=== PATIENT | female | born 1955 | race Caucasian/White ===

== ENCOUNTER 2017-02-15 00:57 | Inpatient (IN) | payer OTHER ==
[2017-02-15] VITALS (8 sets, daily range): BP systolic 89–130; BP diastolic 56–80; PULSE 55–139; RESP 15–27; O2SAT 93–99
[~2017-02-15] VITALS: Ht 177.8 cm; Wt 73.9 kg
--- NOTE | 2017-02-15 01:17 | ED.REPORT ---
HPI-General Illness Date of Service Feb 15, 2017 ED Provider: Jerry Solo MD Pt is a 61 y.o. female who presents to the ED via EMS c/o severe lower back pain onset today. Pt was seen at [facility] earlier today after being kicked off of a horse and she was dx with a nondisplaced L2 transverse process fracture. Other than the fracture the pt's CT abdomen/pelvis was normal. She was discharged home with a prescription for Dilaudid but she was unable to fill the prescription due to the late hour. When she had arrived home she went straight to bed, she had to use the restroom and when she stood up she experienced intense pain rated at a 10 and an associated syncopal episode. The pt's was standing next to her to help her walk and was able to lower her to the ground. Pt reports associated LOC (no given time), weakness, nausea, and rapid heart palpitations. She denies head injury, chest pain, SOB, and bladder/bowel dysfunction.. Nursing Notes Stated Complaint: SYNCOPE,LOC Chief Complaint: Back Pain or Injury Nursing Notes Reviewed: Yes Allergies: Coded Allergies: No Known Allergies (Verified Allergy, Unknown, 02/15/17) General Time Seen by MD: 01:15 Chief Complaint Back pain Hx Obtained From: Patient Arrived By: Walk-in Sudden in Onset?: Yes Symptom Duration: Since onset Caused by: Accidental, Fall from height... Location: : Back Quality: Painful Severity: Current: Pain level 2 out of 10 Severity: Maximum: Pain level 10 out of 10 Recent Healthcare: Recent doctor visit Past Medical History Past Medical History Denies Past Surgical History None reported Social History Alcohol Use: "Social" Other Social History: Ambulatory Status Independent Review of Systems Full Review of Systems Constitutional: Reports: Weakness - generalized Respiratory: Denies: Shortness of breath Cardiovascular: Reports: Palpitations, Denies: Chest pain GI: Reports: Nausea Female: Denies: Incontinence Neurologic: Reports: Change LOC, Syncope, Denies: Bladder dysfunction, Bowel dysfunction Complete sys rev & neg: except as marked. Physical Exam Vital Signs Vital Signs Date Time Temp Pulse Resp B/P Pulse Ox O2 Delivery O2 Flow Rate FiO2 02/15/17 01:04 36.8 139 27 130/76 98 Room Air Initial VS: Reviewed ENT: Mucous membranes moist Extremities: Vascular intact, Neuro intact Skin: Warm, Dry, No cyanosis Psychiatric: Mood/affect normal, Behavior normal, Normal thought content General/Constitutional: Awake, Alert, Well appearing, Well developed, Well hydrated, Well nourished, Not toxic appearing Appearance / Presentation: Positive: In pain, Uncomfortable Head / Eyes: Atraumatic, Normocephalic, PERRL Cardiovascular: Regular rhythm, Heart sounds NL, Cap refill not delayed, Peripheral circulation NL Heart Rate / Rhythm: Positive: Tachycardia Abdomen: Atraumatic, Soft, No guarding, No rebound, No distention Tenderness/Guarding/Rebound: Positive: Tender RLQ..., Tender RUQ... Trauma - General: Negative: Ecchymosis, Hematoma Flank / Spine / Paraspinal: Positive: Lumbar spine tender... (Low) Neurologic: Oriented X3, Speech NL Interpretation & Diagnostics Lab Results Interpretation Result Diagram: 02/15/17 0118 02/15/17 0118 Test 02/15/17 01:18 White Blood Count 9.5th/mm3 (3.8-10.1) Red Blood Count 4.38mil/mm3 (3.90-5.20) Hemoglobin 12.9g/dL (12.0-15.6) Hematocrit 39.7% (35.0-46.0) Mean Corpuscular Volume 90.6fL (81-100) Mean Corpuscular Hemoglobin 29.5pg (27.0-35.0) Mean Corpuscular Hemoglobin Concent 32.5% (32.0-37.0) Red Cell Distribution Width 13.9% (12.3-15.4) Platelet Count 249bil/L (150-400) Neutrophils (%) (Auto) 69.6% (40-74) Lymphocytes (%) (Auto) 18.3% (14-46) Monocytes (%) (Auto) 10.8% (4-12) Eosinophils (%) (Auto) 0.6% (0-5) Basophils (%) (Auto) 0.5% (0-3) Hold Purple Top Tube Received (Received) Prothrombin Time 10.3sec (8.1-12.5) Prothromb Time International Ratio 0.96ratio Activated Partial Thromboplast Time 23.7sec (22.8-33.0) Hold Blue Top Tube Received (Received) Sodium Level 138mEq/L (134-144) Potassium Level 3.7mEq/L (3.5-5.2) Chloride Level 96mEq/L (97-108) Carbon Dioxide Level 24mmol/L (18-29) Blood Urea Nitrogen 13mg/dL (8-27) Creatinine 0.75mg/dL (0.57-1.00) Estimat Glomerular Filtration Rate 113mL/min (>59) Glucose Level 120mg/dL (60-99) Calcium Level 9.0mg/dL (8.5-10.1) Magnesium Level 2.0mg/dL (1.6-2.6) Total Bilirubin 0.4mg/dL (0.0-1.2) Aspartate Amino Transf (AST/SGOT) 21U/L (0-50) Alanine Aminotransferase (ALT/SGPT) 26U/L (0-32) Alkaline Phosphatase 70U/L (25-165) Total Protein 7.1g/dL (6.4-8.4) Albumin 4.4g/dL (3.4-5.0) Lipase 17U/L (13-60) Hold [place] Top Tube Received (Received) Re-Eval/Medical Decision Med Decision/Clinical Course In summary, 61-year-old female presenting to the ED for evaluation of a syncopal episode in the setting of trauma yesterday evening. When seen at [facility], her readings demonstrated a negative CT scan of the patient's abdomen and pelvis, however demonstrated a left L2 TP fracture. Her vital signs there appeared to be grossly within normal limits, however upon arrival here, the patient is tachycardic normotensive. No bowel or bladder incontinence, no urinary retention. Concern for delayed traumatic injury plan to obtain repeat trauma scans. Patient signed out to Dr. White at 0300 with trauma scans and likely admission pending. Source of Hx: Old records Time of Eval: 02:19 Re-Evaluation/Progress Note: Pt rechecked. Pt is persitently tachycardic. Pt is still in pain and is requesting to be admitted to the hospital. Counseled Regarding: Diagnosis, Lab results, Need for follow-up, When/why to return to ED Discharge & Departure Shift Change Sign-Out Patient Care Transferred: Yes (Dr. White) Discussed Complaint(s): Yes Imaging Studies: Ordered, not yet done Primary Impression: Lumbar transverse process fracture Encounter type: initial encounter Fracture type: closed Qualified Code: S32.008A - Other fracture of unspecified lumbar vertebra, initial encounter for closed fracture Disposition: ADMITTED TO HOSPITAL Discharge Condition All VS Reviewed: Yes Condition: Improved Referrals: Syeda Landon MD (PCP) Care Transferred to: Dr. White Care Transferred at: 03:00 Scribe Attestation Portions of this note were transcribed by Epi Hallman. I, Dr. Solo personally performed the history, physical exam and medical decision-making; I reviewed and confirmed the accuracy of the information in the transcribed note. Signed by: Dylan Lawson, 02/15/2017 and 0252. copies to: Syeda Landon MD, William B MD Feb 15, 2017 01:17 EPI HALLMAN Feb 15, 2017 01:28
[2017-02-15] MEDS ORDERED: 0.9% Sodium Chloride 1,000 ML IV ONE ×2 (01:33→02:31)
[2017-02-15] MEDS ORDERED: HYDROmorphone 0.5 mg/0.5 mL iSecure Syringe IVPUSH PRN (01:35)
[2017-02-15] MEDS ORDERED: Ondansetron 2 mg/mL 2 mL Inj IVPUSH ONE (01:35)
[2017-02-15 02:42] LABS: BASOPHILS % (AUTO) 0.5 % (0-3); EOSINOPHILS % (AUTO) 0.6 % (0-5); MONOCYTES % (AUTO) 10.8 % (4-12); Mean Corpuscular Hemoglobin 29.5 pg (27.0-35.0); Mean Corpuscular Volume 90.6 fL (81-100); NEUTROPHILS % (AUTO) 69.6 % (40-74); Platelet Count 249 bil/L (150-400)
[2017-02-15 02:50] LABS: INR 0.96 ratio
[2017-02-15] MEDS ORDERED: Ondansetron 2 mg/mL 2 mL Inj IVPUSH PRN ×2 (03:55→06:20)
[2017-02-15] MEDS ORDERED: Diltiazem 5 mg/mL 5 mL Inj IVPUSH ONE (04:50)
[2017-02-15] MEDS ORDERED: Lidocaine 2% 6mL Topical Jelly TOPICAL ONE (04:50)
[2017-02-15] MEDS ORDERED: Hydrocortisone 50 mg/mL 2 mL Inj IVPUSH ONE (06:15)
[2017-02-15] MEDS ORDERED: Ketorolac 15 mg/mL Inj IVPUSH ONE (06:15)
[2017-02-15] MEDS ORDERED: Dextrose 5% 0.45% NaCl 1,000 ML IV SCH (06:20)
[2017-02-15] MEDS ORDERED: Alum-Mag Hydrox-Simeth 30 mL Suspension PO PRN (06:20)
[2017-02-15] MEDS ORDERED: 0.9% Sodium Chloride 1,000 ML IV SCH (07:22)
[2017-02-15] MEDS ORDERED: Senna-Docusate 8.6-50 mg Tablet PO PRN (07:25)
[2017-02-15] MEDS ORDERED: Polyethylene Glycol (PEG) 17 Gm Powder PO PRN (07:25)
--- NOTE | 2017-02-15 07:29 | PCM.HPMED ---
Subjective Date of Service Feb 15, 2017 Primary Provider: Admitting Physician: Yoel Soliman MD Primary Care Physician: Syeda Landon MD Attending Physician: Yoel Soliman MD Chief Complaint: Low back pain, A. fib found History of Present Illness: 02/14 patient presented to the ED in [facility] after being thrown from a horse and being diagnosed with an acute L2 transverse process fracture. She declined hospitalization at that point in time after receiving a couple doses of Dilaudid and went home with Dilaudid by mouth. Overnight she woke up because she was in severe pain and felt that her heart was pounding and I think she tried to go to the bathroom and actually had a syncopal episode. She denies having chest pain shortness of breath or diaphoresis with it she just states she "did not feel right". She had severe pain because the Dilaudid that was prescribed she could not fill because pharmacies were closed in her area. Prior to the fall she had been feeling fine. There was no syncope or near syncope. The horse she was riding in a show sputum threw her. Review of Systems: Gen.: No fevers chills weight loss weight gain + overnight malaise as described above Eyes: no visual disturbances or blurring vision HEENT: No nose/throat drainage, no pain in ears or throat, no hearing loss Lymph: No lymph nodes noted Cardiac: No chest pain, orthopnea, PND, pedal edema or dyspnea on exertion, ++ palpitations Pulmonary: no cough, wheezing or bringing up of sputum GI: No anorexia nausea vomiting blood or black in the stool : no dysuria hematuria urinary frequency or decrease in urine output Musculoskeletal: Joint swelling no joint pain no new muscle aches ++ back pain Neuro: No syncope, seizures no,no new focal weakness, numbness or tingling ++ syncope Psychiatric: New new anxiety insomnia or depression Endocrine: No new heat or cold intolerances polyuria or polydipsia Hematology: No lymphadenopathy or easy bleeding or bruising noted skin: No new rashes, stasis dermatitis Allergies Coded Allergies: No Known Allergies (Verified Allergy, Unknown, 02/15/17) Home Medications Hydrocortisone PMH Adrenal insufficiency has had workup at [facility] including brain imaging December 2016 Surgery- patient denies Social- patient denies smoking drinking and recreational drugs she is and her is at the bedside Family history- mother with diabetes and breast cancer in her 70s. Other med she denies any family history of heart disease, other cancers, or other disorders Social History Hx Alcohol Use: Yes (OCCAS) Hx Substance Use: No Exam Vital Signs Vital Sign - Last Date Time Temp Pulse Resp B/P Pulse Ox O2 Delivery O2 Flow Rate FiO2 02/15/17 06:46 65 15 95/58 95 Room Air 02/15/17 01:04 36.8 Intake and Output 02/14/17 02/14/17 02/15/17 Cumulative From/Thru 15:00 23:00 07:00 02/15/17 01:04 - 02/15/17 04:40 Intake Total 2000 ml 2000 ml Balance 2000 ml 2000 ml Intake IV Total 2000 ml 2000 ml Exam Gen.- A+ O 3 no apparent distress. Tall sturdy female lying in bed Eyes- open conjunctiva clear, pupils equal nonicteric Mouth- oral mucosa moist, no exudate ENT- ears normal, nose normal Neck- supple/trach midline CVS- RRR no murmur or gallop Lungs CTA GI- NABS/NT soft Musc- moving 4 no obvious deformity Neuro- cranial nerves II through XII intact to gross examination, nonfocal Skin- warm and dry, no rashes/lesions/wounds noted Psych- pleasant and appropriate, Lab and Diagnostics Result Diagram: 02/15/1711702/15/17117 12-lead ECG A. fib with a rate of 119, QTC over read as 475 ms personally/concurrently reviewed by Jeannie 02/15 Assessment & Plan 61-year-old female who was thrown from a horse yesterday comes in because of back pain and near syncopal episode. Her pain was not controlled because she could not fill the narcotic prescription and then she was incidentally found to be in A. fib with rapid ventricular response. #A. fib with RVR-rate control with metoprolol, will determine best anticoagulation after speaking with patient -r/o WI by enzymes -Echo pending #Adrenal insufficiency-dosing stress dose hydrocortisone 30 mg by mouth twice a day #Back pain/transverse process fracture-Tylenol 975 3 times a day plus Dilaudid which patient was prescribed from [facility]. -Early mobilization and see if patient needs a muscle relaxant #Prophylaxis-DVT with SCDs/enoxaparin, GI not indicated #Disposition-full code from babylon Zach Dennis MD Feb 15, 2017 07:29
[2017-02-15 08:44] LABS: Creatine Kinase 188 U/L (21-215)
[2017-02-15] MEDS: Sodium Chloride LOK Flush 10 mL Syringe IVFLUSH SCH ×2 (08:51→16:30)
--- NOTE | 2017-02-15 09:19 | DRSVH ---
PROCEDURE: CT CHEST, ABDOMEN AND PELVIS WITH CONTRAST ([id number]) INDICATIONS: trauma TECHNIQUE: After the administration of intravenous contrast, 5 mm thick sections acquired from the lung apices t o the symphysis. 5 mm thick coronal and sagittal reformats were acquired. Additional 7 mm thick cor onal maximum intensity projection (MIP) reformats acquired through the lungs. Optional 10-minute del ayed imaging may be performed from the kidneys to the bladder. For radiation dose reduction, the fol lowing was used: automated exposure control, adjustment of mA and/or kV according to patient size. COMPARISON: None. FINDINGS: Image quality: Excellent. CHEST: Lungs: No pulmonary contusions or lacerations. No acute airspace opacities. No pneumothorax or hem othorax. Central and peripheral airways appear patent and normal in caliber. Mediastinum: No mediastinal hematomas. Heart size is normal. No pericardial effusion. Thoracic ao rta and pulmonary arteries demonstrate normal size and enhancement. No mediastinal or hilar adenopat hy. Esophagus is normal in caliber. No hiatal hernia. Chest wall: No rib fractures. No subcutaneous emphysema. No axillary or supraclavicular adenopathy . Thyroid gland is within normal limits where visualized. ABDOMEN: Solid organs: Liver and spleen are normal in size and enhancement, without lacerations. Gallbladder is within normal limits. Biliary system is non-dilated. Pancreas enhances normally, without transe ction. No adrenal hematomas. Both kidneys enhance normally, without hydronephrosis or lacerations. A 0.9 cm in diameter fat density lesion is noted in the left kidney compatible with renal angiomyolip sera. There is a 4 mm diameter nonobstructing stone in the superior pole of the left kidney. There is a 2 mm nonobstructing stone in the inferior pole of the right kidney. Peritoneum and bowel: No free fluid or air. Unenhanced bowel loops demonstrate normal wall thicknes s and caliber. Scattered diverticuli noted in the sigmoid colon without evidence of diverticulitis. Nodes and vessels: No retroperitoneal or mesenteric adenopathy. Aorta and inferior vena cava are no rmal in size and enhancement. Miscellaneous: No ventral hernias. PELVIS: Genitourinary: Bladder wall thickness is normal. Punctate calcification noted in the uterus possibly related to uterine fibroid. Miscellaneous: No inguinal hernias or adenopathy. Bones: Pelvic ring and hip joints appear intact. No vertebral compression fractures. Chronic left L 2 transverse process fracture is noted. Spine degenerative disc disease and facet arthropathy are not ed. IMPRESSION: 1. No acute traumatic injury. 2. 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 3. Small nonobstructing bilateral renal stones. 4. Colonic diverticulosis without evidence of diverticulitis. 5. Chronic left L2 transverse process fracture. Dictated by: Fide Leiva MD, PhD on 02/15/2017 at 9:12 Approved by: Fide Leiva MD, PhD on 02/15/2017 at 9:18
--- NOTE | 2017-02-15 09:22 | DRSVH ---
PROCEDURE: CT BRAIN WITHOUT CONTRAST ([id number]) INDICATIONS: trauma TECHNIQUE: Noncontrast 4.5 mm thick angled axial sections acquired from the foramen magnum to the vertex, with c oronal reformats. COMPARISON: None. FINDINGS: Image quality: Excellent. CSF spaces: Basal cisterns are patent. No extra-axial fluid collections. Ventricles are normal in size and shape. Brain: No midline shift. No intracranial masses or hemorrhage. Nogueira-white matter interface is norm al. Skull and face: Calvarium and visualized facial bones are intact, without suspicious lesions. Sinuses: Mucosal thickening and air-fluid levels noted in the maxillary sinuses bilaterally. The mast oids are clear. IMPRESSION: 1. No acute intracranial disease process. 2. Bilateral acute superimposed upon chronic maxillary sinusitis. Dictated by: Fide Leiva MD, PhD on 02/15/2017 at 9:18 Approved by: Fide Leiva MD, PhD on 02/15/2017 at 9:21
--- NOTE | 2017-02-15 09:27 | DRSVH ---
PROCEDURE: CT CERVICAL SPINE WITHOUT CONTRAST ([id number]) INDICATIONS: trauma TECHNIQUE: Noncontrast 3 mm thick sections acquired from the skull base to the T4 level. Sagittal and coronal r eformats were then constructed. For radiation dose reduction, the following was used: automated exp osure control, adjustment of mA and/or kV according to patient size. COMPARISON: None. FINDINGS: Image quality: Excellent. Bones: No fractures or dislocations. Visualized superior ribs are intact. Spine degenerative disc d isease and facet arthropathy. Soft tissues: Prevertebral soft tissues are normal in thickness. No paravertebral hematomas. No ap ical pneumothoraces. 6 mm left thyroid hypoattenuating nodule. IMPRESSION: No fracture. No acute osseous lesion. If symptoms and/or clinical suspicion for patholog y persists, further assessment with MRI may be helpful for further assessment. Dictated by: Fide Leiva MD, PhD on 02/15/2017 at 9:21 Approved by: Fide Leiva MD, PhD on 02/15/2017 at 9:25
[2017-02-15] MEDS ORDERED: HYDR5TAB PO ×2 (11:07)
--- NOTE | 2017-02-15 12:27 | DRSVH ---
[facility] [address] [place] [address] Echocardiogram Report Name: MICHAEL VELAZCO LStudy Date: 01/2017 Height: 70 in Hospital Exam Location: [facility] Weight: 165 lb Gender: Female BSA: 1.9 m2 : 1955 Age: 61 yrs BP: 89/56 mmHg Reason For Study: Chest pain Performed By: Corbin Reina Referring Physician: Syeda Landon Interpretation Summary The left ventricle is normal in size. The ejection fraction is estimated to be 60-65%. The right ventricle is normal in size and function. No significant valvular pathology seen. There is mild luminal irregularity and echogenicity in the abdominal aorta, suggestive of aortic atherosclerotic disease. Procedure: A two-dimensional transthoracic echocardiogram with color flow and Doppler was performed. There is no prior echocardiogram noted for this patient. The study quality was technically adequate. The patient was in normal sinus rhythm during the exam. Left Ventricle: The left ventricle is normal in size. There is normal left ventricular wall thickness. There is no thrombus. The ejection fraction is estimated to be 60-65%. There are no focal wall motion abnormalities. Spectral Doppler of the mitral valve shows a normal E/A wave ratio. The E/E' ratio is borderline increased, suggesting possible increased filling pressures. Right Ventricle: The right ventricle is normal in size and function. Atria: Both atria are normal in size. The interatrial septum is intact with no evidence for an atrial septal defect. Mitral Valve: The mitral valve leaflets are slightly calcified. There is trace mitral regurgitation. Aortic Valve: The aortic valve is trileaflet. The aortic valve opens well. The aortic valve is slightly calcified. There is trace aortic regurgitation. Tricuspid Valve: The tricuspid valve is normal in structure and function. There is trace tricuspid regurgitation. The right ventricular systolic pressure is estimated at 27 mmHg assuming a right atrial pressure of 3 mm Hg. Pulmonic Valve: The pulmonic valve is normal in structure and function. There is trace pulmonic regurgitation. Great Vessels: The aortic root is normal size. The dimensions of the ascending aorta are normal. The ascending aorta is normal in size. There is mild luminal irregularity and echogenicity in the abdominal aorta, suggestive of aortic atherosclerotic disease. The pulmonary artery is normal size. The IVC is of normal diameter and collapses greater than 50% with a sniff. This suggests a low right atrial pressure of 3 mm Hg. Pericardium/ Pleura There is no pericardial effusion. There is an anterior echo-free space consistent with a fat pad. There is no pleural effusion. MMode/2D Measurements & Calculations LVIDd: 4.5 cm RA long axis LVOT diam LVIDs: 2.9 cm LA A2 area: 16.0 cm FS: 35.2 % LA A4 area: 20.9 cm RA area AoV Opening EPSS: 0.67 cm LA length (vol): 5.8 cm IVSd: 0.93 cm LA vol: 49.1 ml : 14.3 cm Ao root diam LVPWd: 0.82 cm LA vol index RA vol : 38.2 ml asc Aorta RA Diam: 3.2 cm IVC diam: 1.8 cm : 19.9 mm2 LV johnson. diameter/BSA LV sys. diameter/BSA RVD1 (basal) RVD2 (mid) (cm/m^2): 2.3 (cm/m^2): 1.5 : 2.5 cm Doppler Measurements & Calculations Ao V2 max MV E max wilmar MV E/A: 1.2 TR max wilmar : 133.5 cm/sec : 98.2 cm/sec Med Peak E' Wilmar : 243.0 cm/sec Ao max P.1 mmHg MV A max wilmar TR max PG Ao mean P.3 mmHg : 83.4 cm/sec E/E' med: 12.8 : 23.6 mmHg LVOT Max Wilmar Lat Peak E' Wilmar PA V2 max : 99.7 cm/sec : 84.8 cm/sec EMMA(I,D): 2.1 cm E/E' lat: 11.1 PA mean PG sev ratio: 0.63 E/e' average PA Accel Time MV A dur: 0.09 sec: 0.12 sec MV dec time: 0.19 sec Ao V2 mean LV V1 max PG PA V2 mean : 100.5 cm/sec : 55.1 cm/sec Ao V2 VTI: 30.1 cmLV V1 VTI: 18.9 cm EMMA(V,D): 2.5 cm2 EMMA indexed to BSA (cm^2/m^2): 1.1 Reading Physician:PM
--- NOTE | 2017-02-15 13:07 | NUR ---
Admit Pt arrived on [facility] at 0845, able to transfer [facility] bed without assistance, Echo started right after arrival Admit and Med Rec done after Echo. no complaints of pain/nausea at this time. Mild dizziness when she first stood up. pt using call light appropriately to before getting up. care continued.
--- NOTE | 2017-02-15 15:06 | NUR ---
Evaluation completed. Please go to "Notes" then click on "Assessments and Notes" (bottom left corner of screen). Then select appropriate discipline tab on top of screen.
[2017-02-15 15:19] LABS: Creatine Kinase 161 U/L (21-215)
--- NOTE | 2017-02-15 16:41 | NUR ---
Social Work: Screening D: EMR reviewed. Pt is a 61 y/o female admitted for intractable pain, new onset afib per H&P. SW met with pt at bedside to conduct initial screening. Pt was alert and oriented x3. SW explained role and wrote phone number on white board. Pt confirmed she has completed DPOA/advanced directive ppw and SW encouraged pt to provide a copy to the hospital. Pt's insurance is [employer]. Pt's PCP is Syeda Landon MD. Pt confirmed her spouse will provide transport home via POV when pt is medically stable. SW does not anticipate any discharge needs at this time but will continue to follow if needs arise. A: Pt who is independent at baseline P: Pt confirmed her spouse will provide transport home via POV when pt is medically stable. SW does not anticipate any discharge needs at this time but will continue to follow if needs arise. ANAIS Terrell
--- NOTE | 2017-02-15 17:43 | PCM.DIMED ---
Discharge Instructions Date of Service Feb 15, 2017 Dates of Hospitalization Feb 15, 2017 at 07:11 Discharge Diagnosis Discharge Diagnosis Back pain, new onset atrial fibrillation Call your provider Call your provider for: Chest pain, Other (palpitations) Patient Instructions Follow-up plan At this point there is no recurrence of symptoms there is no need to follow up on atrial fibrillation. Zach Dennis MD Feb 15, 2017 17:43
[2017-02-15] MEDS ORDERED: HYDR10TA12 PO (17:49)
--- NOTE | 2017-02-15 19:20 | PCM.DC.MED ---
Discharge Summary Date of Service Feb 15, 2017 Dates of Hospitalization Date of Hospital Admission Feb 15, 2017 at 07:11 Date of Discharge: Feb 15, 2017 Providers: Admitting Physician: Yoel Soliman MD Primary Care Physician: Syeda Landon MD Attending Physician: Yoel Soliman MD Diagnosis at Time of Discharge Diagnosis at Time of Discharge Back pain, new onset atrial fibrillation Consultations None Procedures ECG 12 Lead Repeat was a sinus rhythm A. fib with a rate of 119, QTC over read as 475 ms personally/concurrently reviewed by Jeannie 02/15 Cardiac Echo Impression Echocardiogram Reporty: Katie Mckeon on 02/15/2017 12:26 The left ventricle is normal in size. The ejection fraction is estimated to be 60-65%. The right ventricle is normal in size and function. No significant valvular pathology seen. There is mild luminal irregularity and echogenicity in the abdominal aorta, suggestive of aortic atherosclerotic disease. Reading Physician:SAGAR Brief History 02/14 patient presented to the ED in [facility] after being thrown from a horse and being diagnosed with an acute L2 transverse process fracture. She declined hospitalization at that point in time after receiving a couple doses of Dilaudid and went home with Dilaudid by mouth. Overnight she woke up because she was in severe pain and felt that her heart was pounding and I think she tried to go to the bathroom and actually had a syncopal episode. She denies having chest pain shortness of breath or diaphoresis with it she just states she "did not feel right". She had severe pain because the Dilaudid that was prescribed she could not fill because pharmacies were closed in her area. Prior to the fall she had been feeling fine. There was no syncope or near syncope. The horse she was riding in a show sputum threw her. Hospital Course 61-year-old female who was thrown from a horse yesterday comes in because of back pain and near syncopal episode. Her pain was not controlled because she could not fill the narcotic prescription and then she was incidentally found to be in A. fib with rapid ventricular responserate of 119.patient went through the emergency room received a dose of diltiazem apparently converted to sinus rhythm and remained in sinus rhythm for the duration. I initially prescribed metoprolol for the rapid heart rate however I do not think this was necessarily ever given and the patient was hypotensive in double digits until just before discharge. He denied dizziness however I am concerned that she may need her stress dose hydrocortisone which I to 30 mg twice a day she got 100 mg IV in the emergency room.she mobilized with physical therapy was not symptomatic for orthostatic hypotension, I think she only use Tylenol for back pain while she was here but she has a prescription for hydromorphone from [facility] in [place] but she is reluctant to take it because I think the IV doses were very strong for her. I told her to try taking a half to a quarter she needed at bedtime as this would probably get her through the night. follow-up care with primary care provider for blood pressure and no need for follow-up with cardiology unless she has ongoing symptoms as her chads score is 0 there is no indication for anticoagulation unless of course she did not convert to sinus rhythm spontaneously and she were going to have elective cardioversion in the outpatient setting. Patient was discharged with some stress dose hydrocortisone just in case. #A. fib with RVR-rate control with metoprolol, will determine best anticoagulation after speaking with patient -r/o trop Normal 2 -Echo Normal #Hypotension- patient asymptomatic #Adrenal insufficiency-dosing stress dose hydrocortisone 30 mg by mouth twice a day #Back pain/transverse process fracture-Tylenol 975 3 times a day plus Dilaudid which patient was prescribed from ED [facility]. -Early mobilization and see if patient needs a muscle relaxant #Prophylaxis-DVT with SCDs/enoxaparin, GI not indicated #Disposition-full code from home Exam Vital Signs (Last) Date Time Temp Pulse Resp B/P Pulse Ox O2 Delivery O2 Flow Rate FiO2 02/15/17 13:14 36.6 55 18 106/66 96 Room Air Exam Same as on admission Test 02/15/17 01:18 02/15/17 14:40 White Blood Count 9.5th/mm3 (3.8-10.1) Red Blood Count 4.38mil/mm3 (3.90-5.20) Hemoglobin 12.9g/dL (12.0-15.6) Hematocrit 39.7% (35.0-46.0) Mean Corpuscular Volume 90.6fL (81-100) Mean Corpuscular Hemoglobin 29.5pg (27.0-35.0) Mean Corpuscular Hemoglobin Concent 32.5% (32.0-37.0) Red Cell Distribution Width 13.9% (12.3-15.4) Platelet Count 249bil/L (150-400) Neutrophils (%) (Auto) 69.6% (40-74) Lymphocytes (%) (Auto) 18.3% (14-46) Monocytes (%) (Auto) 10.8% (4-12) Eosinophils (%) (Auto) 0.6% (0-5) Basophils (%) (Auto) 0.5% (0-3) Hold Purple Top Tube Received (Received) Prothrombin Time 10.3sec (8.1-12.5) Prothromb Time International Ratio 0.96ratio Activated Partial Thromboplast Time 23.7sec (22.8-33.0) Hold Blue Top Tube Received (Received) Sodium Level 138mEq/L (134-144) Potassium Level 3.7mEq/L (3.5-5.2) Chloride Level 96mEq/L (97-108) Carbon Dioxide Level 24mmol/L (18-29) Blood Urea Nitrogen 13mg/dL (8-27) Creatinine 0.75mg/dL (0.57-1.00) Estimat Glomerular Filtration Rate 113mL/min (>59) Glucose Level 120mg/dL (60-99) Calcium Level 9.0mg/dL (8.5-10.1) Magnesium Level 2.0mg/dL (1.6-2.6) Total Bilirubin 0.4mg/dL (0.0-1.2) Aspartate Amino Transf (AST/SGOT) 21U/L (0-50) Alanine Aminotransferase (ALT/SGPT) 26U/L (0-32) Alkaline Phosphatase 70U/L (25-165) Total Protein 7.1g/dL (6.4-8.4) Albumin 4.4g/dL (3.4-5.0) Lipase 17U/L (13-60) Thyroid Stimulating Hormone (TSH) 5.690uIU/mL (0.450-4.500) Free Thyroxine 1.08ng/dL (0.82-1.77) Hold Nucla Top Tube Received (Received) Total Creatine Kinase 161U/L (21-215) Creatine Kinase MB 1.9ng/mL (0.0-5.3) Creatine Kinase MB % % (0.0-5.0) Troponin T < 0.010ug/L (0.0-0.011) Discharge Medications Discharge Medications Hydrocortisone (Cortef) 5 Mg Tablet 15 MG PO MORNING (Reported) Hydrocortisone (Cortef) 5 Mg Tablet 5 MG PO DAILY (Reported) Hydrocortisone (Hydrocortisone) 10 Mg Tablet 30 MG PO BID Prescribed by: DALI ALFORD MD Followup Plan Disposition: To home Follow-up plan At this point there is no recurrence of symptoms there is no need to follow up on atrial fibrillation. Discharge Diet: Renal Diet Follow-up Provider: Syeda Landon MD Follow-up with PCP in: Other (call none absolutely necessary) copies to: Syeda Landon MD, Andris E MD Feb 15, 2017 19:20
--- NOTE | 2017-02-15 19:39 | NUR ---
Discharge Pt left with family in stable condition with all belongings at 1930. IV d/c'd, prescription given, instructions for scheduling follow up given, teaching given on A-fib and what to watch out for. Pain medication already filled by . pt and family stated they had no question or concerns at this time.
[2017-02-15] MEDS ORDERED: Hydrocortisone 10 mg Tablet PO SCH (20:30)
== END 2017-02-15 19:34 | disposition home or self-care (01) | DRG 309 ==
LOC: EDBD 00:57 → SED 00:57 → OBSVTOIN 07:11 → OSC 07:11
PROVIDERS: ADMIT Hospitalist; ATTEND Hospitalist
DX: I48.91 Unspecified atrial fibrillation (principal); E27.40 Unspecified adrenocortical insufficiency; S32.029A Unspecified fracture of second lumbar vertebra, initial encounter for closed fracture; M54.9 Dorsalgia, unspecified; V80.010A Animal-rider injured by fall from or being thrown from horse in noncollision accident, initial encounter; Y93.52 Activity, horseback riding; Y92.9 Unspecified place or not applicable